=== PATIENT | male | born 1935 | race Caucasian/White ===

== ENCOUNTER → 2016-05-10 | Outpatient (CLI) | payer MEDICARE, OTHER ==
[2016-05-10 09:01] LABS: ALANINE AMINOTRANSFERASE 25 U/L (21-72); ALBUMIN 4.2 g/dL (3.5-5.0); ALKALINE PHOSPHATASE 65 U/L (38-126); ANION GAP 12 (5-19); ASPARTATE AMINO TRANSFERASE 18 U/L (17-59); BILIRUBIN,TOTAL 0.5 mg/dL (0.2-1.3); BLOOD UREA NITROGEN 50 mg/dL (7-20); CALCIUM 10.1 mg/dL (8.4-10.2); CARBON DIOXIDE 32 mmol/L (22-30); CHLORIDE 102 mmol/L (98-107); CREATININE RESULT 2.55 mg/dL (0.52-1.25); GLUCOSE 197 mg/dL (75-110); POTASSIUM 4.3 mmol/L (3.6-5.0); SODIUM 145.7 mmol/L (137-145); TOTAL PROTEIN 6.1 g/dL (6.3-8.2)
== END ==
LOC: OD 07:43
PROVIDERS: ATTEND Internal Medicine
DX: I10 Essential (primary) hypertension (principal); E03.8 Other specified hypothyroidism
CPT/HCPCS: 36415; 80053; 84436; 84443

== ENCOUNTER → 2016-07-01 | Outpatient (CLI) | payer MEDICARE, OTHER ==
[2016-07-01 08:12] LABS: ABSOLUTE EOSINOPHILS # (AUTO) 0.1 10^3/uL (0.0-0.6); ABSOLUTE LYMPHOCYTES (AUTO) 1.4 10^3/uL (0.5-4.7); ABSOLUTE MONOCYTES (AUTO) 0.5 10^3/uL (0.1-1.4); ABSOLUTE NEUT (AUTO) 2.9 10^3/uL (1.7-8.2); BASOPHILS % (AUTO) 0.9 % (0-2); EOSINOPHILS % (AUTO) 2.7 % (0-6); HEMATOCRIT 33.1 % (37.9-51.0); HEMOGLOBIN 11.3 g/dL (13.5-17.0); HGB HCT DIFFERENCE 0.8; LYMPHOCYTES % (AUTO) 27.5 % (13-45); MEAN CORPUSCULAR HEMOGLOBIN 29.3 pg (27.0-33.4); MEAN CORPUSCULAR HGB CONC 34.2 g/dL (32.0-36.0); MEAN CORPUSCULAR VOLUME 86 fl (80-97); MONOCYTES % (AUTO) 9.4 % (3-13); RED BLOOD COUNT 3.86 10^6/uL (4.35-5.55); RED CELL DISTRIBUTION WIDTH 15.1 % (11.5-14.0); SEGMENTED NEUTROPHILS % (AUTO) 59.5 % (42-78); WHITE BLOOD COUNT 4.9 10^3/uL (4.0-10.5)
[2016-07-01 08:37] LABS: ANION GAP 11 (5-19); BLOOD UREA NITROGEN 57 mg/dL (7-20); CALCIUM 9.8 mg/dL (8.4-10.2); CARBON DIOXIDE 32 mmol/L (22-30); CHLORIDE 104 mmol/L (98-107); CREATININE RESULT 2.44 mg/dL (0.52-1.25); GLUCOSE 153 mg/dL (75-110); POTASSIUM 4.2 mmol/L (3.6-5.0); SODIUM 147.2 mmol/L (137-145)
[2016-07-02 10:37] LABS: CREATININE URINE 36.8 mg/dL (Not Estab.); MICROALBUMIN URINE 42.4 ug/mL (Not Estab.)
== END ==
LOC: OD 07:08
PROVIDERS: ATTEND Internal Medicine Nephrology
DX: N18.4 Chronic kidney disease, stage 4 (severe) (principal); R80.9 Proteinuria, unspecified
CPT/HCPCS: 36415; 80048; 82043; 82570; 85025

== ENCOUNTER → 2016-08-23 | Outpatient (CLI) | payer MEDICARE, OTHER ==
[2016-08-23 08:08] LABS: Direct HDL 32 mg/dL (>40); TRIGLYCERIDES 247 mg/dL (<150)
[2016-08-23 08:19] LABS: DIRECT LDL 65 mg/dL (<100)
[2016-08-23 08:23] LABS: VLDL CHOLESTEROL 49.4 mg/dL (10-31)
[2016-08-23 08:38] LABS: THYROID STIMULATING HORMONE 3.85 uIU/mL (0.47-4.68)
== END ==
LOC: OD 07:10
PROVIDERS: ATTEND Internal Medicine
DX: E11.22 Type 2 diabetes mellitus with diabetic chronic kidney disease (principal); E03.8 Other specified hypothyroidism; E78.2 Mixed hyperlipidemia
CPT/HCPCS: 36415; 80061; 83036; 84439; 84443

== ENCOUNTER → 2016-11-03 | Outpatient (CLI) | payer MEDICARE, OTHER ==
[2016-11-03 08:24] LABS: ABSOLUTE EOSINOPHILS # (AUTO) 0.1 10^3/uL (0.0-0.6); ABSOLUTE LYMPHOCYTES (AUTO) 1.4 10^3/uL (0.5-4.7); ABSOLUTE MONOCYTES (AUTO) 0.5 10^3/uL (0.1-1.4); ABSOLUTE NEUT (AUTO) 4.1 10^3/uL (1.7-8.2); BASOPHILS % (AUTO) 0.7 % (0-2); EOSINOPHILS % (AUTO) 1.9 % (0-6); HEMOGLOBIN 11.9 g/dL (13.5-17.0); HGB HCT DIFFERENCE 0.7; LYMPHOCYTES % (AUTO) 23.3 % (13-45); MEAN CORPUSCULAR HEMOGLOBIN 30.3 pg (27.0-33.4); MEAN CORPUSCULAR HGB CONC 34.2 g/dL (32.0-36.0); MEAN CORPUSCULAR VOLUME 89 fl (80-97); MONOCYTES % (AUTO) 7.9 % (3-13); RED BLOOD COUNT 3.94 10^6/uL (4.35-5.55); RED CELL DISTRIBUTION WIDTH 14.6 % (11.5-14.0); SEGMENTED NEUTROPHILS % (AUTO) 66.2 % (42-78); WHITE BLOOD COUNT 6.2 10^3/uL (4.0-10.5)
[2016-11-03 08:53] LABS: ALBUMIN 3.9 g/dL (3.5-5.0); ANION GAP 10 (5-19); BLOOD UREA NITROGEN 46 mg/dL (7-20); CALCIUM 9.6 mg/dL (8.4-10.2); CARBON DIOXIDE 31 mmol/L (22-30); CHLORIDE 105 mmol/L (98-107); CREATININE RESULT 2.11 mg/dL (0.52-1.25); GLUCOSE 155 mg/dL (75-110); POTASSIUM 4.4 mmol/L (3.6-5.0)
[2016-11-04 08:18] LABS: VITAMIN D 25-HYDROXY 31.5 ng/mL (30.0-100.0)
[2016-11-04 10:38] LABS: CREATININE URINE 36.1 mg/dL (Not Estab.); MICROALBUMIN URINE 71.9 ug/mL (Not Estab.)
== END ==
LOC: OD 07:40
PROVIDERS: ATTEND Internal Medicine Nephrology
DX: N18.4 Chronic kidney disease, stage 4 (severe) (principal); R80.9 Proteinuria, unspecified; E55.9 Vitamin D deficiency, unspecified
CPT/HCPCS: 36415; 80048; 82040; 82043; 82306; 82570; 83970; 84100; 85025

== ENCOUNTER → 2016-12-29 | Outpatient (CLI) | payer MEDICARE, OTHER ==
[2016-12-29 08:50] LABS: ANION GAP 12 (5-19); BLOOD UREA NITROGEN 52 mg/dL (7-20); CALCIUM 9.9 mg/dL (8.4-10.2); CARBON DIOXIDE 33 mmol/L (22-30); CHLORIDE 101 mmol/L (98-107); CREATININE RESULT 2.25 mg/dL (0.52-1.25); GLUCOSE 130 mg/dL (75-110); POTASSIUM 3.7 mmol/L (3.6-5.0); SODIUM 146.1 mmol/L (137-145)
== END ==
LOC: OD 07:12
DX: I10 Essential (primary) hypertension (principal)
CPT/HCPCS: 36415; 80048

== ENCOUNTER → 2017-01-03 | Outpatient (CLI) | payer MEDICARE, OTHER ==
--- NOTE | 2017-01-03 16:51 | XCELERA REPORT ---
[address] [address] Lower Extremity Arterial Evaluation Name: BSASAM LEVY Age: 81 yrs Gender: Male : 1935 Patient Status: Outpatient Patient Location: Study Date: 01/03/2017 02:16 PM Procedure: A color flow and duplex scan of the lower extremity arteries was performed bilaterally with velocity and waveform anaylsis. PPG's performed. Reason For Study: PVD I73.9 Ordering Physician: JENNY MCCARTY Performed By: Delores Mancia Measurements and Calculations Right Left CARTON MAKER PSV 87.1 127.0 cm/sec Prox PFA PSV -72.8 64.8 cm/sec Prox SFA PSV 159.9 130.7 cm/sec Mid SFA PSV -140.4 -106.9 cm/sec Dist SFA PSV -146.7 87.7 cm/sec Prox Pop A PSV 154.3 161.1 cm/sec Dist ANTONIO PSV 121.3 60.0 cm/sec Dist MAIL HANDLER EQUIPMENT OPERATOR PSV 104.3 91.9 cm/sec Bob Pedis PSV 30.3 41.6 cm/sec Right Side Arterial Evaluation Normal velocity and triphasic waveforms noted from the Common Femoral artery to the Posterior Tibial artery . Biphasic in the Anterior Tibial and in the Deep Femoral artery, with well preserved velocities. 0-19 % stenosis at the Anterior Tibial and Deep Femoral arteries. Ankle Brachial index was not done. PPG's are normal. Left Side Arterial Evaluation Normal velocity and triphasic waveforms noted from the Common Femoral artery to the infrageniculate arteries . Biphasic in the Deep Femoral artery, with well preserved velocities. 0-19 % stenosis in the Deep Femoral artery. Ankle Brachial index was not done. PPG's are normal. Interpretation Summary Mild hemodynamically significant lesions in the bilateral lower extremities, on duplex imaging, at rest. : JENNY MCCARTY > Urbano Flynn
== END ==
LOC: SP 13:44
PROVIDERS: ATTEND Preventive Medicine Undersea and Hyperbaric Medicine
DX: I73.9 Peripheral vascular disease, unspecified (principal)
CPT/HCPCS: 93925

== ENCOUNTER → 2017-01-04 | Outpatient (CLI) | payer MEDICARE, OTHER ==
[2017-01-04 15:34] LABS: ABSOLUTE EOSINOPHILS # (AUTO) 0.1 10^3/uL (0.0-0.6); ABSOLUTE LYMPHOCYTES (AUTO) 1.2 10^3/uL (0.5-4.7); ABSOLUTE MONOCYTES (AUTO) 0.4 10^3/uL (0.1-1.4); ABSOLUTE NEUT (AUTO) 3.5 10^3/uL (1.7-8.2); BASOPHILS % (AUTO) 0.9 % (0-2); EOSINOPHILS % (AUTO) 2.1 % (0-6); HEMOGLOBIN 11.8 g/dL (13.5-17.0); HGB HCT DIFFERENCE 1.4; LYMPHOCYTES % (AUTO) 22.7 % (13-45); MEAN CORPUSCULAR HEMOGLOBIN 30.8 pg (27.0-33.4); MEAN CORPUSCULAR HGB CONC 34.6 g/dL (32.0-36.0); MEAN CORPUSCULAR VOLUME 89 fl (80-97); MONOCYTES % (AUTO) 7.7 % (3-13); RED BLOOD COUNT 3.83 10^6/uL (4.35-5.55); RED CELL DISTRIBUTION WIDTH 14.4 % (11.5-14.0); SEGMENTED NEUTROPHILS % (AUTO) 66.6 % (42-78); WHITE BLOOD COUNT 5.3 10^3/uL (4.0-10.5)
[2017-01-04 15:51] LABS: ALANINE AMINOTRANSFERASE 25 U/L (21-72); ALKALINE PHOSPHATASE 48 U/L (38-126); ANION GAP 10 (5-19); ASPARTATE AMINO TRANSFERASE 24 U/L (17-59); BILIRUBIN,DIRECT 0.4 mg/dL (0.0-0.4); BILIRUBIN,TOTAL 0.4 mg/dL (0.2-1.3); BLOOD UREA NITROGEN 62 mg/dL (7-20); CALCIUM 9.6 mg/dL (8.4-10.2); CARBON DIOXIDE 30 mmol/L (22-30); CHLORIDE 106 mmol/L (98-107); CREATININE RESULT 2.86 mg/dL (0.52-1.25); GLUCOSE 160 mg/dL (75-110); POTASSIUM 4.2 mmol/L (3.6-5.0); SODIUM 146.1 mmol/L (137-145); TOTAL PROTEIN 6.1 g/dL (6.3-8.2)
[2017-01-04 15:53] LABS: C-REACTIVE PROTEIN < 5.0 mg/L (<10.0)
[2017-01-04 16:14] LABS: ERYTHROCYTE SEDIMENTATION RATE 13 mm/hr (0-20)
--- NOTE | 2017-01-04 16:31 | RADIOLOGY REPORT (SQ) ---
EXAM DESCRIPTION: FOOT LEFT COMPLETE COMPLETED DATE/TIME: 01/04/2017 3:29 pm REASON FOR STUDY: NON-PRS CHRONIC ULCER OTH PRT LEFT FOOT W FAT LAYER EXPOSED L97.522 NON-PRS CHRON IC ULCER OTH PRT LEFT FOOT W FAT LAYER COMPARISON: None. NUMBER OF VIEWS: Three views. TECHNIQUE: AP, lateral and oblique radiographic images acquired of the left foot. LIMITATIONS: None. FINDINGS: MINERALIZATION: Normal. BONES: Pes planus. No evidence of osteomyelitis. No acute fracture. The navicular may be displaced inferiorly. Severe degenerative changes are present in the hindfoot. Calcaneal spurs are present. JOINTS: No effusions. SOFT TISSUES: No soft tissue swelling. No foreign body. OTHER: No other significant finding. IMPRESSION: Severe hindfoot degenerative changes as described. No evidence of osteomyelitis. Pes p lanus. TECHNICAL DOCUMENTATION: JOB ID: [id number] [employer]- All Rights Reserved
== END ==
LOC: OD 14:40
PROVIDERS: ATTEND Nurse Practitioner Family
DX: L97.522 Non-pressure chronic ulcer of other part of left foot with fat layer exposed (principal)
CPT/HCPCS: 36415; 80053; 85025; 85652; 86140

== ENCOUNTER → 2017-03-09 | Outpatient (CLI) | payer MEDICARE, OTHER ==
[2017-03-09 08:23] LABS: ABSOLUTE EOSINOPHILS # (AUTO) 0.1 10^3/uL (0.0-0.6); ABSOLUTE LYMPHOCYTES (AUTO) 1.6 10^3/uL (0.5-4.7); ABSOLUTE MONOCYTES (AUTO) 0.4 10^3/uL (0.1-1.4); ABSOLUTE NEUT (AUTO) 3.5 10^3/uL (1.7-8.2); BASOPHILS % (AUTO) 0.9 % (0-2); EOSINOPHILS % (AUTO) 1.8 % (0-6); HEMATOCRIT 35.8 % (37.9-51.0); HEMOGLOBIN 12.4 g/dL (13.5-17.0); HGB HCT DIFFERENCE 1.4; LYMPHOCYTES % (AUTO) 27.6 % (13-45); MEAN CORPUSCULAR HEMOGLOBIN 31.2 pg (27.0-33.4); MEAN CORPUSCULAR HGB CONC 34.6 g/dL (32.0-36.0); MEAN CORPUSCULAR VOLUME 90 fl (80-97); MONOCYTES % (AUTO) 7.4 % (3-13); RED BLOOD COUNT 3.97 10^6/uL (4.35-5.55); RED CELL DISTRIBUTION WIDTH 14.6 % (11.5-14.0); SEGMENTED NEUTROPHILS % (AUTO) 62.3 % (42-78); WHITE BLOOD COUNT 5.6 10^3/uL (4.0-10.5)
[2017-03-09 08:49] LABS: ANION GAP 8 (5-19); BLOOD UREA NITROGEN 45 mg/dL (7-20); CALCIUM 9.2 mg/dL (8.4-10.2); CARBON DIOXIDE 34 mmol/L (22-30); CHLORIDE 102 mmol/L (98-107); CREATININE RESULT 2.31 mg/dL (0.52-1.25); GLUCOSE 125 mg/dL (75-110); POTASSIUM 4.3 mmol/L (3.6-5.0); SODIUM 144.3 mmol/L (137-145)
[2017-03-10 11:40] LABS: CREATININE URINE 36.7 mg/dL (Not Estab.); MICROALBUMIN URINE 67.5 ug/mL (Not Estab.)
== END ==
LOC: OD 07:10
PROVIDERS: ATTEND Internal Medicine Nephrology
DX: N18.9 Chronic kidney disease, unspecified (principal); E55.9 Vitamin D deficiency, unspecified
CPT/HCPCS: 36415; 80048; 82043; 82570; 85025

== ENCOUNTER → 2017-06-15 | Outpatient (CLI) | payer MEDICARE, OTHER ==
[2017-06-15 16:06] LABS: ABSOLUTE EOSINOPHILS # (AUTO) 0.2 10^3/uL (0.0-0.6); ABSOLUTE LYMPHOCYTES (AUTO) 1.4 10^3/uL (0.5-4.7); ABSOLUTE MONOCYTES (AUTO) 0.4 10^3/uL (0.1-1.4); ABSOLUTE NEUT (AUTO) 4.9 10^3/uL (1.7-8.2); BASOPHILS % (AUTO) 0.7 % (0-2); EOSINOPHILS % (AUTO) 2.4 % (0-6); HEMATOCRIT 35.8 % (37.9-51.0); HEMOGLOBIN 11.9 g/dL (13.5-17.0); LYMPHOCYTES % (AUTO) 20.6 % (13-45); MEAN CORPUSCULAR HEMOGLOBIN 29.9 pg (27.0-33.4); MEAN CORPUSCULAR HGB CONC 33.3 g/dL (32.0-36.0); MEAN CORPUSCULAR VOLUME 90 fl (80-97); MONOCYTES % (AUTO) 6.4 % (3-13); PLATELET COUNT 210 10^3/uL (150-450); RED CELL DISTRIBUTION WIDTH 13.6 % (11.5-14.0); SEGMENTED NEUTROPHILS % (AUTO) 69.9 % (42-78); TOTAL CELLS COUNTED % (AUTO) 100 %; WHITE BLOOD COUNT 7.1 10^3/uL (4.0-10.5)
[2017-06-15 16:33] LABS: ANION GAP 11 (5-19); BLOOD UREA NITROGEN 45 mg/dL (7-20); CARBON DIOXIDE 30 mmol/L (22-30); CHLORIDE 108 mmol/L (98-107); GLUCOSE 153 mg/dL (75-110); POTASSIUM 4.7 mmol/L (3.6-5.0)
[2017-06-15 16:34] LABS: C-REACTIVE PROTEIN < 5.0 mg/L (<10.0)
[2017-06-15 16:47] LABS: ERYTHROCYTE SEDIMENTATION RATE 14 mm/hr (0-20)
== END ==
LOC: OD 15:09
PROVIDERS: ATTEND Orthopaedic Surgery
DX: M25.462 Effusion, left knee (principal)
CPT/HCPCS: 36415; 80048; 85025; 85652; 86140

== ENCOUNTER → 2017-06-26 | Outpatient (CLI) | payer MEDICARE, OTHER ==
[2017-06-26 17:04] LABS: ANION GAP 9 (5-19); BLOOD UREA NITROGEN 43 mg/dL (7-20); CALCIUM 10.2 mg/dL (8.4-10.2); CARBON DIOXIDE 32 mmol/L (22-30); CHLORIDE 105 mmol/L (98-107); GLUCOSE 142 mg/dL (75-110); POTASSIUM 4.1 mmol/L (3.6-5.0); SODIUM 145.7 mmol/L (137-145)
== END ==
LOC: OD 15:58
PROVIDERS: ATTEND Physician Assistant
DX: I12.9 Hypertensive chronic kidney disease with stage 1 through stage 4 chronic kidney disease, or unspecified chronic kidney disease (principal); N18.4 Chronic kidney disease, stage 4 (severe)
CPT/HCPCS: 36415; 80048

== ENCOUNTER 2017-07-20 16:42 | Emergency (ER) | payer MEDICARE, OTHER ==
--- NOTE | 2017-07-20 18:11 | ER Document Report ---
ED Extremity Problem, Lower - General Chief Complaint: Knee Pain Stated Complaint: KNEE PAIN Time Seen by Provider: 07/20/17 17:21 Mode of Arrival: Ambulatory Information source: Patient TRAVEL OUTSIDE OF THE [place] IN LAST 30 DAYS: No - HPI Patient complains to provider of: Pain, Swelling Location: Knee - LEFT Occurred: Yesterday Onset/Duration: Intermittent Quality of pain: Other - SORENESS Context: Other - S/P TKR 15 MOS. AGO. NO RECENT INJURY. Recent injury: No Exacerbated by: Movement, Walking Relieved by: Rest - Related Data Allergies/Adverse Reactions: Calcium Channel Blocking Agent Dilt [Calcium Channel Blocking Agents-Hiram] Allergy (Severe, Verified 07/20/17 16:42) Seizures, swelling diazepam [Diazepam] Allergy (Severe, Verified 07/20/17 16:42) Hallucinations, N&V hydrocodone [Hydrocodone] Allergy (Severe, Verified 07/20/17 16:42) Hallucinations, N&V oxycodone [Oxycodone] Allergy (Severe, Verified 07/20/17 16:42) Hallucinations, N&V spironolactone [Spironolactone] Allergy (Severe, Verified 07/20/17 16:42) swelling, muscle jerking, spasms, increased pulse rate amlodipine Allergy (Verified 07/20/17 16:42) Seizures, swelling hydralazine [Hydralazine] Adverse Reaction (Severe, Verified 07/20/17 16:42) Weakness, Disorientation pregabalin [From Lyrica] Adverse Reaction (Verified 07/20/17 16:42) Hallucinations Past Medical History - General Information source: Patient - Social History Smoking Status: Never Smoker Cigarette use (# per day): No Chew tobacco use (# tins/day): No Frequency of alcohol use: Rare Drug Abuse: None Lives with: Spouse/Significant other Family History: Reviewed & Not Pertinent Patient has suicidal ideation: No Patient has homicidal ideation: No - Past Medical History Cardiac Medical History: Reports: Hx Atrial Fibrillation, Hx Congestive Heart Failure, Hx Coronary Artery Disease, Hx Hypercholesterolemia, Hx Hypertension - 50 yrs-on meds, Hx Heart Murmur Denies: Hx Heart Attack, Hx Peripheral Vascular Disease, Hx Pulmonary Embolism Pulmonary Medical History: Reports: Hx Asthma - inhalers, Hx Bronchitis - hx of , Hx Pneumonia - hx of Denies: Hx COPD, Hx Respiratory Failure, Hx Sleep Apnea, Hx Tuberculosis Neurological Medical History: Reports: Hx Seizures - r/t meds. Denies: Hx Cerebrovascular Accident Endocrine Medical History: Reports: Hx Diabetes Mellitus Type 2, Hx Hypothyroidism - on meds. Denies: Hx Graves' Disease, Hx Hyperthyroidism Renal/ Medical History: Reports: Hx Benign Prostatic Hyperplasia - surgery-20 years ago. Denies: Hx End Stage Renal Disease, Hx Kidney Stones, Hx Peritoneal Dialysis Malignancy Medical History: Denies Hx Leukemia, Denies Hx Lung Cancer GI Medical History: Reports: Hx Ulcer. Denies: Hx Crohn's Disease, Hx Gastroesophageal Reflux Disease, Hx Hiatal Hernia, Hx Irritable Bowel, Hx Liver Failure, Hx Pancreatitis Musculoskeltal Medical History: Reports Hx Arthritis - uses cane, Denies Hx Fibromyalgia, Denies Hx Multiple Sclerosis, Denies Hx Muscular Dystrophy Psychiatric Medical History: Denies: Hx Bipolar Disorder, Hx Dementia, Hx Depression, Hx Post Traumatic Stress Disorder, Hx Schizophrenia Traumatic Medical History: Denies: Hx Fractures Infectious Medical History: Denies: Hx HIV Past Surgical History: Reports: Hx Cardiac Catheterization, Hx Cardiac Surgery - Quad Bypass, Hx Coronary Artery Bypass Graft, Hx Open Heart Surgery, Hx Orthopedic Surgery - L4-5 fuzed, Left ankle. Denies: Hx Appendectomy, Hx Bowel Surgery, Hx Cholecystectomy, Hx Colostomy, Hx Gastric Bypass Surgery, Hx Herniorrhaphy, Hx Pacemaker, Hx Tonsillectomy - Immunizations Hx Diphtheria, Pertussis, Tetanus Vaccination: Yes - unknown Hx Pneumococcal Vaccination: 01/21/15 Review of Systems - Review of Systems Constitutional: No symptoms reported EENT: No symptoms reported Cardiovascular: No symptoms reported Respiratory: No symptoms reported Gastrointestinal: No symptoms reported Musculoskeletal: See HPI Skin: No symptoms reported Neurological/Psychological: No symptoms reported Physical Exam - Vital signs Vitals: Temp Pulse Resp BP Pulse Ox 97.8 F 57 L 16 200/70 H 96 07/20/17 16:46 07/20/17 16:46 07/20/17 16:46 07/20/17 16:46 07/20/17 16:46 Interpretation: Hypertensive, Bradycardic. No: Tachypneic, Febrile - General General appearance: Appears well, Alert In distress: None - HEENT Head: Normocephalic Eyes: Normal Conjunctiva: Normal Ears: Normal Nasal: Normal Mouth/Lips: Normal Mucous membranes: Normal - Respiratory Respiratory status: No respiratory distress - Cardiovascular Rhythm: Regular - Abdominal Inspection: Normal Distension: No distension - Extremities General upper extremity: Normal inspection General lower extremity: No: Normal inspection - L. KNEE (SEE BELOW) Knee: Tender - SUPERIOR & MEDIAL TO PATELLA, Other - MILDLY EDEMATOUS, NO REDNESS OR WARMTH.. No: Joint effusion - Neurological Neuro grossly intact: Yes Cognition: Normal Orientation: AAOx4 - Psychological Associated symptoms: Normal affect, Normal mood - Skin Skin Temperature: Warm Skin Moisture: Dry Skin Color: Normal Skin Turgor: Elastic Course - Vital Signs Vital signs: Temp Pulse Resp BP Pulse Ox 97.8 F 57 L 16 200/70 H 96 07/20/17 16:46 07/20/17 16:46 07/20/17 16:46 07/20/17 16:46 07/20/17 16:46 - Laboratory Result Diagrams: 07/20/17 18:17 07/20/17 18:17 Discharge - Discharge Clinical Impression: Knee pain, left Qualifiers: Chronicity: acute Qualified Code(s): M25.562 - Pain in left knee Condition: Stable Disposition: HOME, SELF-CARE Instructions: Ice & Elevation ([facility]), Sprained Knee ([facility]) Additional Instructions: MINIMIZE WEIGHT BEARING ON LEFT KNEE, EEP IT STRAIGHT MUCH POSSIBLE. KEEP LEFT KNEE ELEVATED MUCH POSSIBLE. TAKE TYLENOL OR TRAMADOL IF NEEDE FOR PAIN CONTROL. FOLLOW UP WITH DR. SY, CALL OFFICE TOMORROW (MONDAY) FOR APPOINTMENT. Referrals: HOUSTON SY MD [ACTIVE STAFF] - Follow up as needed
--- NOTE | 2017-07-20 18:12 | RADIOLOGY REPORT (SQ) ---
EXAM DESCRIPTION: KNEE LEFT 4 VIEW COMPLETED DATE/TIME: 07/20/2017 6:00 pm REASON FOR STUDY: PAIN SWELLING, NO KNOWN TRAUMA COMPARISON: March 2016 NUMBER OF VIEWS: Four views. TECHNIQUE: AP, lateral, and both oblique radiographic images acquired of the left knee. LIMITATIONS: None. FINDINGS: MINERALIZATION: Normal. BONES: No acute fracture or dislocation. No worrisome bone lesions. JOINT: Patient is status post total knee replacement. The prosthesis appears well seated in the dist al femur and proximal tibia in the projections obtained SOFT TISSUES: Soft tissue calcifications are identified in the soft tissues anteriorly and posteriorl y. OTHER: No other significant finding. IMPRESSION: Status post left total knee replacement. No acute fracture dislocation. Soft tissue ca lcifications are identified as noted above which were not present on the previous study. This could be related to myositis oscificans. Clinical correlation is recommended. Other findings as noted abo ve TECHNICAL DOCUMENTATION: JOB ID: [id number] [employer]- All Rights Reserved Reading location - IP/workstation name: [email or web address]
[2017-07-20 18:35] LABS: ABSOLUTE EOSINOPHILS # (AUTO) 0.1 10^3/uL (0.0-0.6); ABSOLUTE LYMPHOCYTES (AUTO) 1.6 10^3/uL (0.5-4.7); ABSOLUTE MONOCYTES (AUTO) 0.5 10^3/uL (0.1-1.4); ABSOLUTE NEUT (AUTO) 3.8 10^3/uL (1.7-8.2); BASOPHILS % (AUTO) 0.7 % (0-2); EOSINOPHILS % (AUTO) 2.1 % (0-6); HEMATOCRIT 37.4 % (37.9-51.0); HEMOGLOBIN 12.8 g/dL (13.5-17.0); LYMPHOCYTES % (AUTO) 26.1 % (13-45); MEAN CORPUSCULAR HEMOGLOBIN 30.1 pg (27.0-33.4); MEAN CORPUSCULAR HGB CONC 34.2 g/dL (32.0-36.0); MEAN CORPUSCULAR VOLUME 88 fl (80-97); MONOCYTES % (AUTO) 7.9 % (3-13); PLATELET COUNT 180 10^3/uL (150-450); RED BLOOD COUNT 4.26 10^6/uL (4.35-5.55); RED CELL DISTRIBUTION WIDTH 14.3 % (11.5-14.0); SEGMENTED NEUTROPHILS % (AUTO) 63.2 % (42-78); TOTAL CELLS COUNTED % (AUTO) 100 %
[2017-07-20 18:41] VITALS: BP 188/74
[2017-07-20 18:57] LABS: ALANINE AMINOTRANSFERASE 27 U/L (21-72); ALBUMIN 4.1 g/dL (3.5-5.0); ALKALINE PHOSPHATASE 48 U/L (38-126); ANION GAP 10 (5-19); ASPARTATE AMINO TRANSFERASE 26 U/L (17-59); BILIRUBIN,DIRECT 0.4 mg/dL (0.0-0.4); BILIRUBIN,TOTAL 0.4 mg/dL (0.2-1.3); BLOOD UREA NITROGEN 55 mg/dL (7-20); CALCIUM 9.7 mg/dL (8.4-10.2); CARBON DIOXIDE 34 mmol/L (22-30); CHLORIDE 103 mmol/L (98-107); GLUCOSE 98 mg/dL (75-110); POTASSIUM 3.7 mmol/L (3.6-5.0); SODIUM 147.2 mmol/L (137-145); TOTAL PROTEIN 6.1 g/dL (6.3-8.2)
[2017-07-20 19:14] LABS: ERYTHROCYTE SEDIMENTATION RATE 12 mm/hr (0-20)
== END 2017-07-20 19:00 | disposition home or self-care (01) ==
LOC: ER 16:42
DX: M25.562 Pain in left knee (principal); M79.89 Other specified soft tissue disorders; Z96.651 Presence of right artificial knee joint; I25.10 Atherosclerotic heart disease of native coronary artery without angina pectoris; I10 Essential (primary) hypertension; J45.909 Unspecified asthma, uncomplicated; E11.9 Type 2 diabetes mellitus without complications
CPT/HCPCS: 36415; 80053; 85025; 85652; 99284

== ENCOUNTER → 2017-07-27 | Outpatient (CLI) | payer MEDICARE, OTHER ==
[2017-07-27 08:56] LABS: ABSOLUTE EOSINOPHILS # (AUTO) 0.1 10^3/uL (0.0-0.6); ABSOLUTE LYMPHOCYTES (AUTO) 1.6 10^3/uL (0.5-4.7); ABSOLUTE MONOCYTES (AUTO) 0.5 10^3/uL (0.1-1.4); ABSOLUTE NEUT (AUTO) 5.2 10^3/uL (1.7-8.2); BASOPHILS % (AUTO) 0.7 % (0-2); EOSINOPHILS % (AUTO) 1.6 % (0-6); HEMATOCRIT 37.3 % (37.9-51.0); HEMOGLOBIN 12.5 g/dL (13.5-17.0); LYMPHOCYTES % (AUTO) 21.8 % (13-45); MEAN CORPUSCULAR HEMOGLOBIN 29.6 pg (27.0-33.4); MEAN CORPUSCULAR HGB CONC 33.6 g/dL (32.0-36.0); MEAN CORPUSCULAR VOLUME 88 fl (80-97); MONOCYTES % (AUTO) 6.7 % (3-13); PLATELET COUNT 190 10^3/uL (150-450); RED BLOOD COUNT 4.23 10^6/uL (4.35-5.55); RED CELL DISTRIBUTION WIDTH 14.4 % (11.5-14.0); SEGMENTED NEUTROPHILS % (AUTO) 69.2 % (42-78); TOTAL CELLS COUNTED % (AUTO) 100 %; WHITE BLOOD COUNT 7.5 10^3/uL (4.0-10.5)
[2017-07-27 08:58] LABS: APPEARANCE,URINE SLIGHTLY-CLOUDY; BILIRUBIN,URINE NEGATIVE (NEGATIVE); COLOR,URINE YELLOW; GLUCOSE, URINE NEGATIVE (NEGATIVE); KETONES,URINE NEGATIVE (NEGATIVE); LEUKOCYTE ESTERASE,URINE NEGATIVE (NEGATIVE); NITRITE,URINE NEGATIVE (NEGATIVE); PROTEIN,URINE NEGATIVE (NEGATIVE); URINE SPECIFIC GRAVITY 1.008; UROBILINOGEN,URINE NEGATIVE mg/dL (<2.0)
[2017-07-27 09:22] LABS: ABSOLUTE EOSINOPHILS # (AUTO) 0.1 10^3/uL (0.0-0.6); ABSOLUTE LYMPHOCYTES (AUTO) 1.6 10^3/uL (0.5-4.7); ABSOLUTE MONOCYTES (AUTO) 0.5 10^3/uL (0.1-1.4); ABSOLUTE NEUT (AUTO) 5.2 10^3/uL (1.7-8.2); BASOPHILS % (AUTO) 0.7 % (0-2); EOSINOPHILS % (AUTO) 1.6 % (0-6); HEMATOCRIT 37.3 % (37.9-51.0); HEMOGLOBIN 12.5 g/dL (13.5-17.0); LYMPHOCYTES % (AUTO) 21.8 % (13-45); MEAN CORPUSCULAR HEMOGLOBIN 29.6 pg (27.0-33.4); MEAN CORPUSCULAR HGB CONC 33.6 g/dL (32.0-36.0); MEAN CORPUSCULAR VOLUME 88 fl (80-97); MONOCYTES % (AUTO) 6.7 % (3-13); PLATELET COUNT 190 10^3/uL (150-450); RED BLOOD COUNT 4.23 10^6/uL (4.35-5.55); RED CELL DISTRIBUTION WIDTH 14.4 % (11.5-14.0); SEGMENTED NEUTROPHILS % (AUTO) 69.2 % (42-78); TOTAL CELLS COUNTED % (AUTO) 100 %; WHITE BLOOD COUNT 7.5 10^3/uL (4.0-10.5)
[2017-07-27 09:40] LABS: ALANINE AMINOTRANSFERASE 26 U/L (21-72); ALBUMIN 4.1 g/dL (3.5-5.0); ALKALINE PHOSPHATASE 47 U/L (38-126); ANION GAP 10 (5-19); ASPARTATE AMINO TRANSFERASE 23 U/L (17-59); BILIRUBIN,DIRECT 0.3 mg/dL (0.0-0.4); BILIRUBIN,TOTAL 0.4 mg/dL (0.2-1.3); BLOOD UREA NITROGEN 49 mg/dL (7-20); CALCIUM 10.1 mg/dL (8.4-10.2); CARBON DIOXIDE 36 mmol/L (22-30); CHLORIDE 104 mmol/L (98-107); CHOLESTEROL 124.99 mg/dL (0-200); GLUCOSE 101 mg/dL (75-110); POTASSIUM 4.1 mmol/L (3.6-5.0); TOTAL PROTEIN 5.8 g/dL (6.3-8.2); TRIGLYCERIDES 127 mg/dL (<150)
[2017-07-27 09:58] LABS: DIRECT LDL 64 mg/dL (<100)
[2017-07-27 10:00] LABS: ALBUMIN 4.1 g/dL (3.5-5.0); ANION GAP 10 (5-19); BLOOD UREA NITROGEN 49 mg/dL (7-20); CALCIUM 10.1 mg/dL (8.4-10.2); CARBON DIOXIDE 36 mmol/L (22-30); CHLORIDE 104 mmol/L (98-107); GLUCOSE 101 mg/dL (75-110); PHOSPHORUS 4.5 mg/dL (2.5-4.5); POTASSIUM 4.1 mmol/L (3.6-5.0)
[2017-07-27 10:11] LABS: FREE T4 (FREE THYROXINE) 1.47 ng/dL (0.78-2.19)
[2017-07-27 10:25] LABS: THYROID STIMULATING HORMONE 3.63 uIU/mL (0.47-4.68)
[2017-07-28 11:40] LABS: CREATININE URINE 37.2 mg/dL (Not Estab.); MICROALBUMIN URINE 28.7 ug/mL (Not Estab.)
== END ==
LOC: OD 08:01
PROVIDERS: ATTEND Internal Medicine Nephrology
DX: E11.22 Type 2 diabetes mellitus with diabetic chronic kidney disease (principal); N18.4 Chronic kidney disease, stage 4 (severe); E11.21 Type 2 diabetes mellitus with diabetic nephropathy; R80.9 Proteinuria, unspecified; E55.9 Vitamin D deficiency, unspecified; E03.8 Other specified hypothyroidism; E78.2 Mixed hyperlipidemia
CPT/HCPCS: 36415; 80048; 80053; 80061; 81001; 82040; 82043; 82306; 82570; 83036; 83970; 84100; 84439; 84443; 85025

== ENCOUNTER → 2017-12-07 | Outpatient (CLI) | payer MEDICARE, OTHER ==
[2017-12-07 07:42] LABS: ABSOLUTE EOSINOPHILS # (AUTO) 0.1 10^3/uL (0.0-0.6); ABSOLUTE LYMPHOCYTES (AUTO) 1.3 10^3/uL (0.5-4.7); ABSOLUTE MONOCYTES (AUTO) 0.4 10^3/uL (0.1-1.4); ABSOLUTE NEUT (AUTO) 5.8 10^3/uL (1.7-8.2); BASOPHILS % (AUTO) 0.6 % (0-2); EOSINOPHILS % (AUTO) 1.1 % (0-6); HEMATOCRIT 33.7 % (37.9-51.0); HEMOGLOBIN 11.5 g/dL (13.5-17.0); LYMPHOCYTES % (AUTO) 16.8 % (13-45); MEAN CORPUSCULAR HEMOGLOBIN 30.2 pg (27.0-33.4); MEAN CORPUSCULAR VOLUME 89 fl (80-97); MONOCYTES % (AUTO) 5.8 % (3-13); PLATELET COUNT 233 10^3/uL (150-450); RED BLOOD COUNT 3.79 10^6/uL (4.35-5.55); RED CELL DISTRIBUTION WIDTH 14.5 % (11.5-14.0); SEGMENTED NEUTROPHILS % (AUTO) 75.7 % (42-78); TOTAL CELLS COUNTED % (AUTO) 100 %; WHITE BLOOD COUNT 7.7 10^3/uL (4.0-10.5)
[2017-12-07 08:01] LABS: ANION GAP 14 (5-19); BLOOD UREA NITROGEN 50 mg/dL (7-20); CALCIUM 8.7 mg/dL (8.4-10.2); CARBON DIOXIDE 26 mmol/L (22-30); CHLORIDE 108 mmol/L (98-107); GLUCOSE 130 mg/dL (75-110); POTASSIUM 4.4 mmol/L (3.6-5.0)
[2017-12-08 13:39] LABS: CREATININE URINE 35.2 mg/dL (Not Estab.); MICROALBUMIN URINE 214.2 ug/mL (Not Estab.)
== END ==
LOC: OD 07:06
PROVIDERS: ATTEND Internal Medicine Nephrology
DX: N18.4 Chronic kidney disease, stage 4 (severe) (principal); I12.9 Hypertensive chronic kidney disease with stage 1 through stage 4 chronic kidney disease, or unspecified chronic kidney disease; N18.9 Chronic kidney disease, unspecified; N25.81 Secondary hyperparathyroidism of renal origin
CPT/HCPCS: 36415; 80048; 82043; 82570; 83970; 85025

== ENCOUNTER → 2018-01-30 | Outpatient (CLI) | payer MEDICARE, OTHER ==
[2018-01-30 08:30] LABS: ALANINE AMINOTRANSFERASE 17 U/L (21-72); ALBUMIN 4.2 g/dL (3.5-5.0); ALKALINE PHOSPHATASE 46 U/L (38-126); ANION GAP 8 (5-19); ASPARTATE AMINO TRANSFERASE 24 U/L (17-59); BILIRUBIN,DIRECT 0.2 mg/dL (0.0-0.4); BILIRUBIN,TOTAL 0.6 mg/dL (0.2-1.3); BLOOD UREA NITROGEN 68 mg/dL (7-20); CALCIUM 9.9 mg/dL (8.4-10.2); CARBON DIOXIDE 36 mmol/L (22-30); CHLORIDE 102 mmol/L (98-107); GLUCOSE 102 mg/dL (75-110); POTASSIUM 4.6 mmol/L (3.6-5.0); SODIUM 146.2 mmol/L (137-145); TOTAL PROTEIN 6.3 g/dL (6.3-8.2)
== END ==
LOC: OD 07:35
PROVIDERS: ATTEND Internal Medicine
DX: E11.22 Type 2 diabetes mellitus with diabetic chronic kidney disease (principal); N18.9 Chronic kidney disease, unspecified
CPT/HCPCS: 36415; 80053; 83036

== ENCOUNTER → 2018-03-12 | Outpatient (CLI) | payer MEDICARE, OTHER ==
[2018-03-12 08:45] LABS: ABSOLUTE EOSINOPHILS # (AUTO) 0.1 10^3/uL (0.0-0.6); ABSOLUTE LYMPHOCYTES (AUTO) 1.4 10^3/uL (0.5-4.7); ABSOLUTE MONOCYTES (AUTO) 0.4 10^3/uL (0.1-1.4); BASOPHILS % (AUTO) 0.8 % (0-2); EOSINOPHILS % (AUTO) 2.2 % (0-6); HEMATOCRIT 34.4 % (37.9-51.0); HEMOGLOBIN 11.9 g/dL (13.5-17.0); LYMPHOCYTES % (AUTO) 23.6 % (13-45); MEAN CORPUSCULAR HEMOGLOBIN 31.3 pg (27.0-33.4); MEAN CORPUSCULAR HGB CONC 34.6 g/dL (32.0-36.0); MEAN CORPUSCULAR VOLUME 90 fl (80-97); PLATELET COUNT 189 10^3/uL (150-450); RED BLOOD COUNT 3.81 10^6/uL (4.35-5.55); SEGMENTED NEUTROPHILS % (AUTO) 67.4 % (42-78); TOTAL CELLS COUNTED % (AUTO) 100 %; WHITE BLOOD COUNT 5.9 10^3/uL (4.0-10.5)
[2018-03-12 09:13] LABS: ALBUMIN 4.3 g/dL (3.5-5.0); ANION GAP 12 (5-19); BLOOD UREA NITROGEN 64 mg/dL (7-20); CARBON DIOXIDE 33 mmol/L (22-30); CHLORIDE 102 mmol/L (98-107); GLUCOSE 137 mg/dL (75-110); PHOSPHORUS 4.4 mg/dL (2.5-4.5); POTASSIUM 3.8 mmol/L (3.6-5.0); SODIUM 146.6 mmol/L (137-145)
[2018-03-12 09:46] LABS: APPEARANCE,URINE SLIGHTLY-CLOUDY; BILIRUBIN,URINE NEGATIVE (NEGATIVE); COLOR,URINE YELLOW; GLUCOSE, URINE NEGATIVE (NEGATIVE); KETONES,URINE NEGATIVE (NEGATIVE); LEUKOCYTE ESTERASE,URINE LARGE (NEGATIVE); NITRITE,URINE NEGATIVE (NEGATIVE); PROTEIN,URINE NEGATIVE (NEGATIVE); URINE SPECIFIC GRAVITY 1.006; UROBILINOGEN,URINE NEGATIVE mg/dL (<2.0)
[2018-03-13 13:38] LABS: CREATININE URINE 26.9 mg/dL (Not Estab.); MICROALBUMIN URINE 56.4 ug/mL (Not Estab.)
== END ==
LOC: OD 07:57
PROVIDERS: ATTEND Internal Medicine Nephrology
DX: N18.3 Chronic kidney disease, stage 3 (moderate) (principal); D63.1 Anemia in chronic kidney disease; N25.81 Secondary hyperparathyroidism of renal origin; E55.9 Vitamin D deficiency, unspecified
CPT/HCPCS: 36415; 80048; 81001; 82040; 82043; 82306; 82570; 83970; 84100; 85025

== ENCOUNTER → 2018-06-20 | Outpatient (CLI) | payer MEDICARE, OTHER ==
[2018-06-20 08:17] LABS: ABSOLUTE BASOPHILS # (AUTO) 0.1 10^3/uL (0.0-0.2); ABSOLUTE EOSINOPHILS # (AUTO) 0.1 10^3/uL (0.0-0.6); ABSOLUTE LYMPHOCYTES (AUTO) 1.4 10^3/uL (0.5-4.7); ABSOLUTE MONOCYTES (AUTO) 0.5 10^3/uL (0.1-1.4); BASOPHILS % (AUTO) 0.9 % (0-2); EOSINOPHILS % (AUTO) 1.7 % (0-6); HEMATOCRIT 33.9 % (37.9-51.0); HEMOGLOBIN 11.7 g/dL (13.5-17.0); LYMPHOCYTES % (AUTO) 23.3 % (13-45); MEAN CORPUSCULAR HEMOGLOBIN 30.7 pg (27.0-33.4); MEAN CORPUSCULAR HGB CONC 34.5 g/dL (32.0-36.0); MEAN CORPUSCULAR VOLUME 89 fl (80-97); MONOCYTES % (AUTO) 8.3 % (3-13); PLATELET COUNT 179 10^3/uL (150-450); RED BLOOD COUNT 3.81 10^6/uL (4.35-5.55); SEGMENTED NEUTROPHILS % (AUTO) 65.8 % (42-78); TOTAL CELLS COUNTED % (AUTO) 100 %
[2018-06-20 08:45] LABS: ANION GAP 5 (5-19); BLOOD UREA NITROGEN 65 mg/dL (7-20); CALCIUM 10.1 mg/dL (8.4-10.2); CARBON DIOXIDE 36 mmol/L (22-30); CHLORIDE 104 mmol/L (98-107); CHOLESTEROL 118.54 mg/dL (0-200); GLUCOSE 114 mg/dL (75-110); POTASSIUM 3.5 mmol/L (3.6-5.0); SODIUM 144.6 mmol/L (137-145); TRIGLYCERIDES 162 mg/dL (<150)
[2018-06-20 08:56] LABS: DIRECT LDL 69 mg/dL (<100); VLDL CHOLESTEROL 32.4 mg/dL (10-31)
[2018-06-21 11:40] LABS: CREATININE URINE 62.8 mg/dL (Not Estab.); MICROALBUMIN URINE 110.9 ug/mL (Not Estab.)
== END ==
LOC: OD 07:39
PROVIDERS: ATTEND Internal Medicine Nephrology
DX: E11.22 Type 2 diabetes mellitus with diabetic chronic kidney disease (principal); I12.9 Hypertensive chronic kidney disease with stage 1 through stage 4 chronic kidney disease, or unspecified chronic kidney disease; N18.3 Chronic kidney disease, stage 3 (moderate); D64.9 Anemia, unspecified; E78.2 Mixed hyperlipidemia
CPT/HCPCS: 36415; 80048; 80061; 82043; 82570; 83036; 83970; 85025

== ENCOUNTER 2018-07-04 09:40 | Day surgery (SDC) | payer MEDICARE, OTHER ==
[2018-06-27 10:06] LABS: HEMATOCRIT 34.1 % (37.9-51.0); HEMOGLOBIN 11.8 g/dL (13.5-17.0); MEAN CORPUSCULAR HEMOGLOBIN 30.5 pg (27.0-33.4); MEAN CORPUSCULAR HGB CONC 34.6 g/dL (32.0-36.0); MEAN CORPUSCULAR VOLUME 88 fl (80-97); PLATELET COUNT 201 10^3/uL (150-450); RED BLOOD COUNT 3.87 10^6/uL (4.35-5.55); RED CELL DISTRIBUTION WIDTH 14.7 % (11.5-14.0); WHITE BLOOD COUNT 6.8 10^3/uL (4.0-10.5)
--- NOTE | 2018-06-27 23:21 | EKG REPORT ---
SEVERITY:- ABNORMAL ECG - SINUS RHYTHM NONSPECIFIC INTRAVENTRICULAR CONDUCTION DELAY PROBABLE LVH WITH SECONDARY REPOL ABNRM : Confirmed by: Kemar Castillo 27-Jun-2018 23:20:28
[~2018-07-04 09:40] MED LIST: ACETAMINOPHEN 325 MG TABLET PO PRN; LACTATED RINGERS 1000 ML IV PRN; LIDOCAINE 0.5% INJ-PF (5 MG/ML) 50 ML SDV SUBCUT PRN
[2018-07-04] MEDS ORDERED: PROPOFOL INJ 200 MG/20 ML VIAL IV ONE (12:15)
[2018-07-04 12:46] LABS: INTERNATIONAL RATION (INR) 1.02; PROTHROMBIN TIME 13.9 SEC (11.4-15.4)
--- NOTE | 2018-07-04 13:21 | Operative Report ---
Operative Report DATE OF SURGERY: 07/04/18 PREOPERATIVE DIAGNOSIS: Left inguinal hernia POSTOPERATIVE DIAGNOSIS: Same, indirect OPERATION: Left inguinal exploration, left inguinal herniorrhaphy with plug and overlay mesh polypropylene repair SURGEON: CHINYERE CASSIDY 1ST WARP CHANGER: MORGAN CUEVAS ANESTHESIA: GA TISSUE REMOVED OR ALTERED: Hernia sac and lipoma of the cord COMPLICATIONS: None ESTIMATED BLOOD LOSS: Scant INTRAOPERATIVE FINDINGS: See below PROCEDURE: Patient was taken to the preop holding area after the left inguinal area was marked by Dr. Cassidy to the main operating room where general anesthesia was induced. The left inguinal area was clipped of hair, prepped and draped in sterile fashion including the testicles. Surgical plan surgical timeout were conducted. Left inguinal herniorrhaphy markings were made on the skin, the skin anest hetized with quarter percent Marcaine. A standard 7 cm along the left inguinal herniorrhaphy incision was made with a knife. Subcutaneous tissue, Ana's fascia divided with electrocautery. The external oblique aponeurosis was cleared, and opened along the direction of its fibers, releasing the external inguinal ring. The contents of the inguinal canal were now mobilized. Superior and inferior fascial flaps were elevated to facilitate mobilization. Neither the genitofemoral nor the ilioinguinal nerves were identified throughout the dissection. The findings were significant for moderate sized cord lipoma, and a medium size hernia sac. Both of these structures were carefully dissected free of the cord structures. The cord lipoma was mobilized all the way to the retroperitoneum exposed to the deep inguinal ring. It was ligated at its base with a 2-0 Vicryl suture and amputated and sent to pathology as cord lipoma. The indirect inguinal hernia sac was now mobilized all the way to its point of origin. It was opened up and found to communicate with the peritoneal cavity and there was no evidence of visceral incarceration. The sac was amputated at its base and the pedicle oversewn with a 2-0 Vicryl suture. As previously referenced, the patient's inguinal hernia was of a indirect variety. The floor the inguinal canal medially was weak but intact. I elected to repair the hernia site with a plug and overlay mesh repair. A plug and overlay mesh was checked for expiration date then brought onto the field. This is a medium size plug. It was inverted and placed adjacent to the cord structures, occupying the patulous internal ring. It was secured to the conjoined tendon with 3 interrupted 0 PDS sutures. We now trimmed the overlying mesh to the appropriate configuration, and sewed it to Poupart's ligament, conjoined tendon and lateral fascia with approximately 9 to 10 interrupted 0 PDS sutures. We were careful to construct the internal ring so that it was not too tight on the cord structures. At this point felt the operation was complete in terms of the repair. The external oblique aponeurosis was closed along direction of its fibers with 2-0 Vicryl suture, Ana's fascia and skin with 3-0 Vicryl suture, and then Dermabond glue applied. 20 cc of full-strength Exparel deployed and subcutaneous tissue. Patient tolerated the procedure well, extubated, and taken to recovery room in stable condition. The physician botany laboratory assistant, Ms. Vasquez, provided assistance during this case by: Assisting retracting tissue, instillation of local anesthesia and closure of skin incisions.
--- NOTE | 2018-07-04 14:36 | Discharge Summary ---
Discharge Summary (SDC) - Discharge Final Diagnosis: Colon polyps and sigmoid diverticulosis Date of Surgery: 07/04/18 Discharge Date: 07/04/18 Condition: Good Treatment or Instructions: [facility] [place] [address] POST ENDOSCOPY DISCHARGE INSTRUCTIONS 1. Diet: Start clear liquids that a regular diet as tolerated. 2. Resume all preoperative medications. All oral anticoagulants and aspirins can be resumed 24 hours after procedure. 3. If a polypectomy was performed some bleeding per rectum may occur. This should stop within 3 days. If not, please contact the office. 4. If you had a colonoscopy you may experience some bloating and delayed return of normal bowel function for several days, your regular bowel movement pattern should resume within a week. 5. Please contact [facility] at to make an appointment with Dr. Cassidy for 1 to 3 weeks following procedure. 6. If you have any questions or concerns regarding your care,treatment plan or follow up, please contact our office. 7. Per clinical guidelines we recommend you undergo a repeat colonoscopy in three years pending patient's overall health. Referrals: DAYNA PRESTON MD [Primary Care Provider] - Discharge Diet: As Tolerated Discharge Activity: Activity As Tolerated Home Care Assistance: None Needed Report the Following to Your Physician Immediately: Shortness of Breath, Increase in Pain
--- NOTE | 2018-07-04 14:39 | Operative Report ---
Nonrecallable Operative Report DATE OF SURGERY: 07/04/18 PREOPERATIVE DIAGNOSIS: Personal history of colon and rectal polyps POSTOPERATIVE DIAGNOSIS: Same with recurrent polyps of the left and transverse colon; sigmoid diverticulosis OPERATION: 1. Total colonoscopy to cecum with photodocumentation. 2. Transverse and left colon polypectomy X 3 SURGEON: CHINYERE LUNA ANESTHESIA: LMAC TISSUE REMOVED OR ALTERED: polyps COMPLICATIONS: none ESTIMATED BLOOD LOSS: scant INTRAOPERATIVE FINDINGS: See below PROCEDURE: Obtaining informed consent the patient was taken from the preoperative holding area to the main endoscopy suite where monitoring devices were attached to the patient. Plan and surgical timeout were conducted The patient was placed in the left lateral decubitus position with knees to chest. A perianal examination was performed. There was no visible or palpable anorectal pathology. Sphincter tone was felt to be normal. The flexible adult colonoscope was advanced through the anal rectal canal, all the way to the cecum. Visualization of the cecum was achieved and the ileocecal valve, the appendiceal orifice and transillumination of the anterior abdominal wall were all confirmed this was an excellent study on the well- prepped bowel. The colonoscope was withdrawn slowly and methodically checked and the mucosa carefully. There was no evidence of tumor, stricture, bleeding there were rare diverticulosis of the sigmoid colon; there were at least 3 small 2-3 mm sessile polyps in the left and transverse colon, photographed, and each removed with cold forceps biopsy device, placed in the same container labeled colon polyps. Bleeding at the polypectomy sites was minimal; The scope was slowly withdrawn through the anal rectal canal. Complete visualization of the rectum was achieved with photodocumentation. The scope was withdrawn to the patient's anus. The scope was retroflexed as well looking at the anoderm which was unremarkable except for internal hemorrhoids. The patient tolerated the procedure well and was taken to the recovery area in stable condition. Per surveillance guidelines, patient be appropriate candidate for follow-up colonoscopy in 3 years depending upon the patient's overall health status.
[2018-07-04 15:40] VITALS: BP 163/63
== END 2018-07-04 15:32 | disposition home or self-care (01) ==
LOC: OROUT 09:40
PROVIDERS: ATTEND Surgery
DX: Z12.11 Encounter for screening for malignant neoplasm of colon (principal); K57.30 Diverticulosis of large intestine without perforation or abscess without bleeding; K63.5 Polyp of colon; Z86.010 Personal history of colon polyps; I10 Essential (primary) hypertension; I48.91 Unspecified atrial fibrillation; J45.909 Unspecified asthma, uncomplicated; E78.00 Pure hypercholesterolemia, unspecified; I83.019 Varicose veins of right lower extremity with ulcer of unspecified site; E11.610 Type 2 diabetes mellitus with diabetic neuropathic arthropathy; Z88.8 Allergy status to other drugs, medicaments and biological substances; Z88.5 Allergy status to narcotic agent; Z79.01 Long term (current) use of anticoagulants; Z79.899 Other long term (current) drug therapy; Z79.4 Long term (current) use of insulin; Z79.51 Long term (current) use of inhaled steroids; Z79.82 Long term (current) use of aspirin; Z79.891 Long term (current) use of opiate analgesic
CPT/HCPCS: 45380; 93005; 36415 ×2; 82962; 85027; 85610; 85730; 88305 ×2; 93010; J2704; 811

== ENCOUNTER → 2018-09-19 | Outpatient (CLI) | payer MEDICARE, OTHER ==
[2018-09-19 07:54] LABS: ABSOLUTE EOSINOPHILS # (AUTO) 0.1 10^3/uL (0.0-0.6); ABSOLUTE LYMPHOCYTES (AUTO) 1.2 10^3/uL (0.5-4.7); ABSOLUTE MONOCYTES (AUTO) 0.4 10^3/uL (0.1-1.4); ABSOLUTE NEUT (AUTO) 3.3 10^3/uL (1.7-8.2); BASOPHILS % (AUTO) 0.7 % (0-2); HEMATOCRIT 34.1 % (37.9-51.0); HEMOGLOBIN 11.5 g/dL (13.5-17.0); LYMPHOCYTES % (AUTO) 24.7 % (13-45); MEAN CORPUSCULAR HEMOGLOBIN 29.7 pg (27.0-33.4); MEAN CORPUSCULAR HGB CONC 33.8 g/dL (32.0-36.0); MEAN CORPUSCULAR VOLUME 88 fl (80-97); MONOCYTES % (AUTO) 7.9 % (3-13); PLATELET COUNT 199 10^3/uL (150-450); RED BLOOD COUNT 3.88 10^6/uL (4.35-5.55); RED CELL DISTRIBUTION WIDTH 15.7 % (11.5-14.0); SEGMENTED NEUTROPHILS % (AUTO) 64.7 % (42-78); TOTAL CELLS COUNTED % (AUTO) 100 %; WHITE BLOOD COUNT 5.1 10^3/uL (4.0-10.5)
[2018-09-19 08:02] LABS: APPEARANCE,URINE SLIGHTLY-CLOUDY; BILIRUBIN,URINE NEGATIVE (NEGATIVE); COLOR,URINE YELLOW; GLUCOSE, URINE NEGATIVE (NEGATIVE); KETONES,URINE NEGATIVE (NEGATIVE); LEUKOCYTE ESTERASE,URINE LARGE (NEGATIVE); NITRITE,URINE NEGATIVE (NEGATIVE); PROTEIN,URINE NEGATIVE (NEGATIVE); URINE SPECIFIC GRAVITY 1.008; UROBILINOGEN,URINE NEGATIVE mg/dL (<2.0)
[2018-09-19 08:09] LABS: ALBUMIN 3.7 g/dL (3.5-5.0); ANION GAP 7 (5-19); BLOOD UREA NITROGEN 61 mg/dL (7-20); CARBON DIOXIDE 33 mmol/L (22-30); CHLORIDE 105 mmol/L (98-107); GLUCOSE 123 mg/dL (75-110); PHOSPHORUS 4.3 mg/dL (2.5-4.5); POTASSIUM 4.2 mmol/L (3.6-5.0)
[2018-09-20 12:37] LABS: CREATININE URINE 22.4 mg/dL (Not Estab.); MICROALBUMIN URINE 46.2 ug/mL (Not Estab.)
== END ==
LOC: OD 07:05
PROVIDERS: ATTEND Internal Medicine Nephrology
DX: I12.9 Hypertensive chronic kidney disease with stage 1 through stage 4 chronic kidney disease, or unspecified chronic kidney disease (principal); N18.4 Chronic kidney disease, stage 4 (severe); E11.22 Type 2 diabetes mellitus with diabetic chronic kidney disease; E11.40 Type 2 diabetes mellitus with diabetic neuropathy, unspecified; D64.9 Anemia, unspecified; N39.0 Urinary tract infection, site not specified
CPT/HCPCS: 36415; 80069; 81001; 82043; 82306; 82570; 82728; 83540; 83550; 83970; 85025; 87086; 87088; 87186

== ENCOUNTER → 2018-10-03 | Outpatient (CLI) | payer MEDICARE, OTHER ==
--- NOTE | 2018-10-04 08:28 | XCELERA REPORT ---
[address] [address] Lower Extremity Venous Evaluation Procedure: A bilateral duplex scan of the lower extremity veins was performed. The evaluation included responses to compression and other maneuvers with patient in the supine and standing positions to assess venous insufficiency. Right Sided Venous Evaluation Lucent,spaces in subcutaneous tissues of the leg, suggesting edema, noted. Deep venous system evaluatiion shows patent veins with no obstruction or significant reflux identified. Sapheno Femoral junction: no reflux. Femoral vein reflux: no reflux. Greater Saphenous vein, Proximal thigh: reflux: no reflux. Greater Saphenous vein, Distal thigh: reflux: no reflux. Greater Saphenous vein, below knee: absent. No significant Perforators identified. Left Sided Venous Evaluation Lucent,spaces in subcutaneous tissues of the leg, suggesting edema, noted. Deep venous system evaluatiion shows patent veins with no obstruction or significant reflux identified. Sapheno Femoral junction: no reflux. Femoral vein reflux: no reflux. Greater Saphenous vein, Proximal thigh: reflux: no reflux. Greater Saphenous vein, Distal thigh: reflux: no reflux. Greater Saphenous vein, Proximal below knee: reflux: no reflux. No significant Perforators identified. Interpretation Summary No duplex evidence of DVT or obstruction in the bilateral lower extremities. No significant reflux identified. There is considerable subcutaneous edema, bilaterally. Name: BASSAM LEVY Age: 83 yrs Gender: Male : 1935 Patient Status: Outpatient Patient Location: Study Date: 10/03/2018 09:34 AM Reason For Study: RT CALF ULCER Ordering Physician: LETY BAHENA Performed By: Bud Robertson : LETY BAHENA > Urbano Flynn
--- NOTE | 2018-10-04 11:51 | XCELERA REPORT ---
[address] [address] Lower Extremity Arterial Evaluation Name: BASSAM LEVY Age: 83 yrs Gender: Male : 1935 Patient Status: Outpatient Patient Location: SP Study Date: 10/03/2018 09:04 AM Procedure: A color flow and duplex scan of the lower extremity arteries was performed bilaterally with velocity and waveform anaylsis. Ankle brachial indicies performed. Reason For Study: RT CALF ULCER Ordering Physician: LETY BAHENA Performed By: Bud Robertson Measurements and Calculations Right Left SCUBA DIVE TRAINING INSTRUCTOR PSV 208.7 172.0 cm/sec Prox PFA PSV -106.2 -100.6cm/sec Prox SFA PSV 181.8 168.5 cm/sec Mid SFA PSV -215.5 -128.9cm/sec Dist SFA PSV -195.3 -118.7cm/sec Prox Pop A PSV 190.5 192.5 cm/sec Mid ANTONIO PSV 115.0 cm/sec Dist ANTONIO PSV 34.9 cm/sec Dist NATIONAL ACCOUNT MANAGER PSV -152.2 135.1 cm/sec Bob Pedis PSV -68.5 -69.1 cm/sec Right Side Arterial Evaluation Normal velocity and triphasic waveforms noted IN the Common Femoral artery. Biphasic with normal to increased velocity in the Femoral and Popliteal. Monophasic, with moderate spectral broadening, normal velocity in the infrageniculate vessels. May be occlusion in distal Anterior Tibial artery. Ankle Brachial index not obtained due to non compressibility. Left Side Arterial Evaluation Normal velocity and triphasic waveforms noted from the Common Femoral artery to the Posterior Tibial. Biphasic with reduced velocity, moderate spectral broadening in the Anterior Tibial. Ankle Brachial index not obtained due to non compressibility. Interpretation Summary Severe hemodynamically significant lesions in the right lower extremity only, on duplex imaging, at rest. Mild hemodynamically significant lesions in the left lower extremity only, on duplex imaging, at rest. Multilevel disease on the right, On the left vascularity fairly well preserved through the Posterior Tibial,. : LETY BAHENA > Urbano Flynn
== END ==
LOC: SP 08:26
PROVIDERS: ATTEND Nurse Practitioner Family
DX: L97.222 Non-pressure chronic ulcer of left calf with fat layer exposed (principal); L97.212 Non-pressure chronic ulcer of right calf with fat layer exposed; L97.522 Non-pressure chronic ulcer of other part of left foot with fat layer exposed
CPT/HCPCS: 93922; 93925; 93970

== ENCOUNTER → 2018-10-03 | Outpatient (CLI) | payer MEDICARE, OTHER ==
[2018-10-03 08:47] LABS: ABSOLUTE EOSINOPHILS # (AUTO) 0.1 10^3/uL (0.0-0.6); ABSOLUTE LYMPHOCYTES (AUTO) 1.5 10^3/uL (0.5-4.7); ABSOLUTE MONOCYTES (AUTO) 0.5 10^3/uL (0.1-1.4); ABSOLUTE NEUT (AUTO) 3.5 10^3/uL (1.7-8.2); BASOPHILS % (AUTO) 0.8 % (0-2); EOSINOPHILS % (AUTO) 2.3 % (0-6); HEMATOCRIT 31.5 % (37.9-51.0); HEMOGLOBIN 10.9 g/dL (13.5-17.0); MEAN CORPUSCULAR HEMOGLOBIN 30.3 pg (27.0-33.4); MEAN CORPUSCULAR HGB CONC 34.5 g/dL (32.0-36.0); MEAN CORPUSCULAR VOLUME 88 fl (80-97); MONOCYTES % (AUTO) 8.8 % (3-13); PLATELET COUNT 169 10^3/uL (150-450); RED BLOOD COUNT 3.58 10^6/uL (4.35-5.55); RED CELL DISTRIBUTION WIDTH 15.6 % (11.5-14.0); SEGMENTED NEUTROPHILS % (AUTO) 62.1 % (42-78); TOTAL CELLS COUNTED % (AUTO) 100 %; WHITE BLOOD COUNT 5.7 10^3/uL (4.0-10.5)
[2018-10-03 09:33] LABS: ALANINE AMINOTRANSFERASE 21 U/L (21-72); ALBUMIN 3.7 g/dL (3.5-5.0); ALKALINE PHOSPHATASE 45 U/L (38-126); ANION GAP 7 (5-19); ASPARTATE AMINO TRANSFERASE 23 U/L (17-59); BILIRUBIN,DIRECT 0.3 mg/dL (0.0-0.4); BILIRUBIN,TOTAL 0.4 mg/dL (0.2-1.3); BLOOD UREA NITROGEN 48 mg/dL (7-20); CALCIUM 9.5 mg/dL (8.4-10.2); CARBON DIOXIDE 33 mmol/L (22-30); CHLORIDE 106 mmol/L (98-107); GLUCOSE 104 mg/dL (75-110); POTASSIUM 4.7 mmol/L (3.6-5.0); SODIUM 145.7 mmol/L (137-145); TOTAL PROTEIN 5.7 g/dL (6.3-8.2)
[2018-10-03 09:34] LABS: C-REACTIVE PROTEIN < 5.0 mg/L (<10.0)
[2018-10-03 09:47] LABS: ERYTHROCYTE SEDIMENTATION RATE 16 mm/hr (0-20)
== END ==
LOC: OD 07:52
PROVIDERS: ATTEND Nurse Practitioner Family
DX: E11.621 Type 2 diabetes mellitus with foot ulcer (principal); L97.222 Non-pressure chronic ulcer of left calf with fat layer exposed; L97.212 Non-pressure chronic ulcer of right calf with fat layer exposed; L97.522 Non-pressure chronic ulcer of other part of left foot with fat layer exposed
CPT/HCPCS: 36415; 80053; 83036; 85025; 85652; 86140

== ENCOUNTER → 2018-10-30 | Outpatient (CLI) | payer MEDICARE, OTHER ==
[2018-10-30 09:16] LABS: ABSOLUTE EOSINOPHILS # (AUTO) 0.2 10^3/uL (0.0-0.6); ABSOLUTE MONOCYTES (AUTO) 0.4 10^3/uL (0.1-1.4); ABSOLUTE NEUT (AUTO) 3.7 10^3/uL (1.7-8.2); BASOPHILS % (AUTO) 0.6 % (0-2); EOSINOPHILS % (AUTO) 2.9 % (0-6); HEMATOCRIT 32.3 % (37.9-51.0); HEMOGLOBIN 10.8 g/dL (13.5-17.0); LYMPHOCYTES % (AUTO) 19.1 % (13-45); MEAN CORPUSCULAR HEMOGLOBIN 29.3 pg (27.0-33.4); MEAN CORPUSCULAR HGB CONC 33.5 g/dL (32.0-36.0); MEAN CORPUSCULAR VOLUME 87 fl (80-97); MONOCYTES % (AUTO) 7.9 % (3-13); PLATELET COUNT 182 10^3/uL (150-450); SEGMENTED NEUTROPHILS % (AUTO) 69.5 % (42-78); TOTAL CELLS COUNTED % (AUTO) 100 %; WHITE BLOOD COUNT 5.3 10^3/uL (4.0-10.5)
[2018-10-30 09:51] LABS: ALANINE AMINOTRANSFERASE 21 U/L (21-72); ALBUMIN 3.8 g/dL (3.5-5.0); ALKALINE PHOSPHATASE 50 U/L (38-126); ANION GAP 7 (5-19); ASPARTATE AMINO TRANSFERASE 20 U/L (17-59); BILIRUBIN,DIRECT 0.3 mg/dL (0.0-0.4); BILIRUBIN,TOTAL 0.4 mg/dL (0.2-1.3); BLOOD UREA NITROGEN 40 mg/dL (7-20); CALCIUM 9.7 mg/dL (8.4-10.2); CARBON DIOXIDE 32 mmol/L (22-30); CHLORIDE 107 mmol/L (98-107); CHOLESTEROL 113.42 mg/dL (0-200); GLUCOSE 119 mg/dL (75-110); POTASSIUM 4.4 mmol/L (3.6-5.0); TOTAL PROTEIN 5.9 g/dL (6.3-8.2); TRIGLYCERIDES 143 mg/dL (<150)
[2018-10-30 10:05] LABS: DIRECT LDL 63 mg/dL (<100)
[2018-10-30 10:12] LABS: FREE T4 (FREE THYROXINE) 1.52 ng/dL (0.78-2.19)
[2018-10-30 10:18] LABS: ANION GAP 7 (5-19); BLOOD UREA NITROGEN 40 mg/dL (7-20); CALCIUM 9.7 mg/dL (8.4-10.2); CARBON DIOXIDE 32 mmol/L (22-30); CHLORIDE 107 mmol/L (98-107); GLUCOSE 119 mg/dL (75-110); POTASSIUM 4.4 mmol/L (3.6-5.0)
[2018-10-30 10:25] LABS: THYROID STIMULATING HORMONE 3.58 uIU/mL (0.47-4.68)
[2018-10-31 12:36] LABS: CREATININE URINE 18.6 mg/dL (Not Estab.); MICROALBUMIN URINE 129.5 ug/mL (Not Estab.)
== END ==
LOC: OD 08:21
PROVIDERS: ATTEND Internal Medicine
DX: E78.2 Mixed hyperlipidemia (principal); I13.0 Hypertensive heart and chronic kidney disease with heart failure and stage 1 through stage 4 chronic kidney disease, or unspecified chronic kidney disease; I50.9 Heart failure, unspecified; N18.4 Chronic kidney disease, stage 4 (severe); E11.22 Type 2 diabetes mellitus with diabetic chronic kidney disease; D63.1 Anemia in chronic kidney disease; E03.8 Other specified hypothyroidism
CPT/HCPCS: 36415; 80053; 80061; 82043; 82570; 83036; 84439; 84443; 85025

== ENCOUNTER → 2019-03-13 | Outpatient (CLI) | payer MEDICARE, OTHER ==
[2019-03-13 07:59] LABS: ABSOLUTE EOSINOPHILS # (AUTO) 0.2 10^3/uL (0.0-0.6); ABSOLUTE LYMPHOCYTES (AUTO) 1.4 10^3/uL (0.5-4.7); ABSOLUTE MONOCYTES (AUTO) 0.4 10^3/uL (0.1-1.4); ABSOLUTE NEUT (AUTO) 3.3 10^3/uL (1.7-8.2); BASOPHILS % (AUTO) 0.8 % (0-2); EOSINOPHILS % (AUTO) 3.2 % (0-6); HEMATOCRIT 33.6 % (37.9-51.0); HEMOGLOBIN 11.4 g/dL (13.5-17.0); LYMPHOCYTES % (AUTO) 26.2 % (13-45); MEAN CORPUSCULAR HEMOGLOBIN 28.1 pg (27.0-33.4); MEAN CORPUSCULAR VOLUME 83 fl (80-97); MONOCYTES % (AUTO) 6.8 % (3-13); PLATELET COUNT 166 10^3/uL (150-450); RED BLOOD COUNT 4.06 10^6/uL (4.35-5.55); RED CELL DISTRIBUTION WIDTH 16.7 % (11.5-14.0); TOTAL CELLS COUNTED % (AUTO) 100 %; WHITE BLOOD COUNT 5.2 10^3/uL (4.0-10.5)
[2019-03-13 08:16] LABS: APPEARANCE,URINE CLEAR; BILIRUBIN,URINE NEGATIVE (NEGATIVE); COLOR,URINE YELLOW; GLUCOSE, URINE NEGATIVE (NEGATIVE); KETONES,URINE NEGATIVE (NEGATIVE); LEUKOCYTE ESTERASE,URINE NEGATIVE (NEGATIVE); NITRITE,URINE NEGATIVE (NEGATIVE); PROTEIN,URINE 100 mg/dL (NEGATIVE); URINE SPECIFIC GRAVITY 1.011; UROBILINOGEN,URINE NEGATIVE mg/dL (<2.0)
[2019-03-13 08:32] LABS: ALBUMIN 3.5 g/dL (3.5-5.0); BLOOD UREA NITROGEN 44 mg/dL (7-20); CALCIUM 9.6 mg/dL (8.4-10.2); CARBON DIOXIDE 34 mmol/L (22-30); CHLORIDE 107 mmol/L (98-107); GLUCOSE 104 mg/dL (75-110); IRON(TIBC) 66.7 ug/dL (49-181); PHOSPHORUS 4.1 mg/dL (2.5-4.5); POTASSIUM 4.3 mmol/L (3.6-5.0)
[2019-03-13 09:44] LABS: ANION GAP 4 (5-19)
[2019-03-14 13:37] LABS: CREATININE URINE 56.5 mg/dL (Not Estab.)
[2019-03-14 14:26] LABS: MICROALBUMIN URINE 810.5 ug/mL (Not Estab.)
== END ==
LOC: OD 07:29
PROVIDERS: ATTEND Internal Medicine Nephrology
DX: I12.9 Hypertensive chronic kidney disease with stage 1 through stage 4 chronic kidney disease, or unspecified chronic kidney disease (principal); N18.4 Chronic kidney disease, stage 4 (severe); D63.1 Anemia in chronic kidney disease; R80.9 Proteinuria, unspecified
CPT/HCPCS: 36415; 80069; 81001; 82043; 82306; 82570; 82728; 83540; 83550; 83970; 85025

== ENCOUNTER → 2019-06-25 | Outpatient (CLI) | payer MEDICARE, OTHER ==
[2019-06-25 08:28] LABS: ABSOLUTE EOSINOPHILS # (AUTO) 0.1 10^3/uL (0.0-0.6); ABSOLUTE LYMPHOCYTES (AUTO) 1.3 10^3/uL (0.5-4.7); ABSOLUTE MONOCYTES (AUTO) 0.4 10^3/uL (0.1-1.4); ABSOLUTE NEUT (AUTO) 3.6 10^3/uL (1.7-8.2); BASOPHILS % (AUTO) 0.9 % (0-2); HEMATOCRIT 35.9 % (37.9-51.0); HEMOGLOBIN 12.4 g/dL (13.5-17.0); LYMPHOCYTES % (AUTO) 23.9 % (13-45); MEAN CORPUSCULAR HEMOGLOBIN 29.9 pg (27.0-33.4); MEAN CORPUSCULAR HGB CONC 34.5 g/dL (32.0-36.0); MEAN CORPUSCULAR VOLUME 86 fl (80-97); MONOCYTES % (AUTO) 7.4 % (3-13); PLATELET COUNT 193 10^3/uL (150-450); RED BLOOD COUNT 4.15 10^6/uL (4.35-5.55); RED CELL DISTRIBUTION WIDTH 14.4 % (11.5-14.0); SEGMENTED NEUTROPHILS % (AUTO) 65.8 % (42-78); TOTAL CELLS COUNTED % (AUTO) 100 %; WHITE BLOOD COUNT 5.4 10^3/uL (4.0-10.5)
[2019-06-25 08:48] LABS: ANION GAP 8 (5-19); BLOOD UREA NITROGEN 50 mg/dL (7-20); CALCIUM 9.7 mg/dL (8.4-10.2); CARBON DIOXIDE 32 mmol/L (22-30); CHLORIDE 105 mmol/L (98-107); GLUCOSE 149 mg/dL (75-110); POTASSIUM 4.6 mmol/L (3.6-5.0)
[2019-06-26 11:37] LABS: CREATININE URINE 29.9 mg/dL (Not Estab.); MICROALBUMIN URINE 203.2 ug/mL (Not Estab.)
== END ==
LOC: OD 07:59
PROVIDERS: ATTEND Physician Assistant
DX: E11.22 Type 2 diabetes mellitus with diabetic chronic kidney disease (principal); I12.9 Hypertensive chronic kidney disease with stage 1 through stage 4 chronic kidney disease, or unspecified chronic kidney disease; N18.3 Chronic kidney disease, stage 3 (moderate); R60.9 Edema, unspecified; E11.21 Type 2 diabetes mellitus with diabetic nephropathy; D50.9 Iron deficiency anemia, unspecified; N25.81 Secondary hyperparathyroidism of renal origin
CPT/HCPCS: 36415; 80048; 82043; 82570; 83036; 83970; 85025

== ENCOUNTER → 2019-09-26 | Outpatient (CLI) | payer MEDICARE, OTHER ==
[2019-09-26 09:11] LABS: ABSOLUTE EOSINOPHILS # (AUTO) 0.1 10^3/uL (0.0-0.6); ABSOLUTE LYMPHOCYTES (AUTO) 1.3 10^3/uL (0.5-4.7); ABSOLUTE MONOCYTES (AUTO) 0.4 10^3/uL (0.1-1.4); ABSOLUTE NEUT (AUTO) 3.3 10^3/uL (1.7-8.2); BASOPHILS % (AUTO) 0.9 % (0-2); EOSINOPHILS % (AUTO) 2.4 % (0-6); HEMOGLOBIN 12.2 g/dL (13.5-17.0); LYMPHOCYTES % (AUTO) 25.3 % (13-45); MEAN CORPUSCULAR HEMOGLOBIN 30.6 pg (27.0-33.4); MEAN CORPUSCULAR HGB CONC 34.9 g/dL (32.0-36.0); MEAN CORPUSCULAR VOLUME 88 fl (80-97); PLATELET COUNT 181 10^3/uL (150-450); RED BLOOD COUNT 3.98 10^6/uL (4.35-5.55); RED CELL DISTRIBUTION WIDTH 13.7 % (11.5-14.0); SEGMENTED NEUTROPHILS % (AUTO) 63.4 % (42-78); TOTAL CELLS COUNTED % (AUTO) 100 %; WHITE BLOOD COUNT 5.2 10^3/uL (4.0-10.5)
[2019-09-26 09:32] LABS: APPEARANCE,URINE SLIGHTLY-CLOUDY; BILIRUBIN,URINE NEGATIVE (NEGATIVE); COLOR,URINE YELLOW; GLUCOSE, URINE NEGATIVE (NEGATIVE); KETONES,URINE NEGATIVE (NEGATIVE); LEUKOCYTE ESTERASE,URINE NEGATIVE (NEGATIVE); NITRITE,URINE NEGATIVE (NEGATIVE); PROTEIN,URINE NEGATIVE (NEGATIVE); URINE SPECIFIC GRAVITY 1.008; UROBILINOGEN,URINE NEGATIVE mg/dL (<2.0)
[2019-09-26 09:53] LABS: ALBUMIN 3.9 g/dL (3.5-5.0); ANION GAP 5 (5-19); BLOOD UREA NITROGEN 64 mg/dL (7-20); CALCIUM 9.7 mg/dL (8.4-10.2); CARBON DIOXIDE 30 mmol/L (22-30); CHLORIDE 107 mmol/L (98-107); GLUCOSE 138 mg/dL (75-110); PHOSPHORUS 4.2 mg/dL (2.5-4.5); POTASSIUM 4.4 mmol/L (3.6-5.0)
[2019-09-27 11:37] LABS: CREATININE URINE 30.1 mg/dL (Not Estab.); MICROALBUMIN URINE 93.2 ug/mL (Not Estab.)
== END ==
LOC: OD 08:31
PROVIDERS: ATTEND Internal Medicine Nephrology
DX: I12.9 Hypertensive chronic kidney disease with stage 1 through stage 4 chronic kidney disease, or unspecified chronic kidney disease (principal); N18.3 Chronic kidney disease, stage 3 (moderate); E11.22 Type 2 diabetes mellitus with diabetic chronic kidney disease; D63.1 Anemia in chronic kidney disease; N25.81 Secondary hyperparathyroidism of renal origin; R80.9 Proteinuria, unspecified
CPT/HCPCS: 36415; 80069; 81001; 82043; 82306; 82570; 83970; 85025